=== PATIENT | female | born 1990 | race Caucasian/White ===

== ENCOUNTER 2024-07-18 00:15 | Inpatient (IN) | payer OTHER ==
[2024-07-18] MEDS: ELECTROLYTE-148 SOLN 1,000 ML IV SCH (00:35)
[2024-07-18] MEDS ORDERED: NALOXONE HCL 0.4 MG/ML VIAL IVPUSH PRN (00:47)
[2024-07-18] MEDS ORDERED: FENTANYL/BUPIVACAINE/NS/PF - PCEA - 50 ML DISP.SYRIN EP ONE ×2 (00:55→03:51)
[2024-07-18] MEDS: FENTANYL/BUPIVACAINE/NS/PF - PCEA - 50 ML DISP.SYRIN EP SCH (01:10)
[2024-07-18 01:11] LABS: ABSOLUTE IMMATURE GRANULOCYTES 0.35 x10^3/uL (0.0-0.031); BASOPHILS # 0.05 x10^3/uL (0.01-0.08); EOSINOPHIL % 0.4 % (0.7-5.8); EOSINOPHILS # 0.07 x10^3/uL (0.04-0.36); HEMATOCRIT 37.3 % (34.1-44.9); HEMOGLOBIN 13.4 g/dL (11.2-15.7); MCHC 35.9 g/dl (32.2-35.5); MEAN CELL VOLUME 98.7 fl (79.4-94.8); MEAN PLT VOLUME 9.8 fl (9.4-12.3); MONOCYTE # 1.13 x10^3/uL (0.24-0.86); MONOCYTE % 6.9 % (4.7-12.5); PLATELET COUNT 221 x10^3/uL (182-369); RDW 12.9 % (12.1-16.8)
[2024-07-18 01:27] VITALS: BMI 27.5
[2024-07-18 01:46] LABS: POTASSIUM 3.6 mmol/L (3.5-5.1)
[2024-07-18 01:47] LABS: CALCIUM 9.3 mg/dL (8.5-10.1)
[2024-07-18 01:48] LABS: BLOOD UREA NITROGEN 10.6 mg/dL (7-18)
[2024-07-18 01:51] LABS: CREATININE 0.6 mg/dL (0.55-1.3)
[2024-07-18 02:11] LABS: INR 0.96 (0.83-1.09); PROTHROMBIN TIME (PATIENT) 10.6 SEC (9.7-13.0)
[2024-07-18 02:14] LABS: ACTIVATED PTT 26.1 SECONDS (25.2-36.5)
[2024-07-18] MEDS ORDERED: OXYTOCIN 30 UNITS in 0.9% NS 30 UNIT/500 ML INFUS.BAG IVPB ONE (02:59)
[2024-07-18] MEDS: OXYTOCIN 30 UNITS in 0.9% NS 30 UNIT/500 ML INFUS.BAG IVPB SCH (03:10)
[2024-07-18] MEDS ORDERED: OXYTOCIN 20 UNITS in 0.9% NS 20 UNIT/1,000 ML INFUS.BAG IV ONE (06:39)
[2024-07-18] MEDS ORDERED: METHYLERGONOVINE MALEATE 0.2 MG/1 ML AMP IM PRN (07:57)
[2024-07-18] MEDS ORDERED: BISACODYL 10 MG SUPP.RECT RC PRN (07:57)
[2024-07-18] MEDS: OXYTOCIN 20 UNITS in 0.9% NS 20 UNIT/1,000 ML INFUS.BAG IV SCH (08:51)
[2024-07-18] MEDS: PRENATAL VITAMINS W/ FOLIC ACID TABLET (FP) PO SCH (10:02)
[2024-07-18] MEDS: BENZOCAINE 20% 57 GM BOTTLE TP PRN (10:02)
[2024-07-18] MEDS: WITCH HAZEL 50% (TUCKS) 40 PAD/JAR PAD TP PRN (10:03)
[2024-07-18] MEDS: BENZOCAINE 28 GM HEMORRHOIDAL OINTMENT TP PRN (10:03)
[2024-07-18] MEDS: IBUPROFEN 600 MG TABLET (FP) PO PRN (21:03)
[2024-07-19 06:53] LABS: ABSOLUTE IMMATURE GRANULOCYTES 0.42 x10^3/uL (0.0-0.031); BASOPHILS # 0.06 x10^3/uL (0.01-0.08); EOSINOPHIL % 0.4 % (0.7-5.8); EOSINOPHILS # 0.08 x10^3/uL (0.04-0.36); HEMATOCRIT 37.4 % (34.1-44.9); HEMOGLOBIN 12.8 g/dL (11.2-15.7); MCHC 34.2 g/dl (32.2-35.5); MEAN CELL VOLUME 102.5 fl (79.4-94.8); MEAN PLT VOLUME 9.6 fl (9.4-12.3); MONOCYTE # 1.41 x10^3/uL (0.24-0.86); MONOCYTE % 7.2 % (4.7-12.5); PLATELET COUNT 201 x10^3/uL (182-369); RDW 13.3 % (12.1-16.8)
[2024-07-19] MEDS: ACETAMINOPHEN 325 MG TABLET (FP) PO PRN (17:54)
[2024-07-19] MEDS: SENNOSIDES/DOCUSATE COMBO (SENNA PLUS) TABLET (UD) PO PRN (22:33)
[2024-07-20 09:21] VITALS: BP 110/61; PULSE 86; RESP 16; TEMP 98.3
== END 2024-07-20 13:45 | disposition home or self-care (01) | DRG 807 ==
LOC: JLDR 00:15 → J3W 09:45
PROVIDERS: ADMIT Obstetrics & Gynecology; ATTEND Obstetrics & Gynecology
PROC: 0KQM0ZZ Repair Perineum Muscle, Open Approach (ICD-10-PCS; principal; 2024-07-18)
PROC: 10E0XZZ Delivery of Products of Conception, External Approach (ICD-10-PCS; 2024-07-18)
DX: O70.1 Second degree perineal laceration during delivery (principal); Z37.0 Single live birth; Z3A.38 38 weeks gestation of pregnancy
CPT/HCPCS: 36415; 59409; 80048; 85025; 85610; 85730; 86780; 86850; 86900; 86901